=== PATIENT | male | born 1935 | race Caucasian/White ===

== ENCOUNTER 2019-01-19 01:49 | Observation (INO) ==
[2019-01-19] MEDS ORDERED: Aspirin 81 MG TAB.CHEW PO ONE (02:05)
[2019-01-19 02:21] LABS: Basophils % 0.2 %; Eosinophils # 0.3 K/mcL (0.0-0.6); Eosinophils % 4.8 %; Hematocrit 41.8 % (37.5-50.1); Hemoglobin 13.4 g/dL (12.9-16.9); Immature Granulocytes % 0.3 % (0-4); Lymphocytes # 2.5 K/mcL (0.6-4.6); Lymphocytes % 43.8 %; Mean Corpuscular HGB Conc 32.1 g/dL (31.6-35.5); Mean Corpuscular Hemoglobin 29.8 pg (28.0-33.3); Mean Corpuscular Volume 93.1 fL (83.0-100.0); Mean Platelet Volume 9.6 fL (9.4-12.4); Monocytes # 0.8 K/mcL (0.0-1.3); Neutrophils # 2.2 K/mcL (1.6-8.9); Platelet Count 177 K/mcL (140-400); Red Blood Count 4.49 M/mcL (4.19-5.50); Red Cell Distribution Width 13.8 % (11.5-14.5); Segmented Neutrophils % 37.9 %; White Blood Count 5.8 K/mcL (4.3-11.1)
[2019-01-19 02:40] LABS: BUN/Creatinine Ratio 19 (6-26); Blood Urea Nitrogen 23 mg/dL (8-23); Calcium 9.4 mg/dL (8.6-10.3); Carbon Dioxide 26 mEq/L (23-29); Chloride 102 mEq/L (98-107); Glucose 96 mg/dL (70-105); Osmolality,Calculated 302 (280-300); Potassium 3.8 mEq/L (3.5-5.1); Sodium 144 mEq/L (136-145); eGFR For African Americans > 60 (> 60); eGFR For Non-African Americans 57 (> 60)
[2019-01-19 02:41] LABS: Troponin I < 0.03 ng/mL (< 0.04)
--- NOTE | 2019-01-19 02:45 | Emergency Department Note ---
Disposition Clinical Impression: Jaw pain, Epigastric abdominal pain Disposition: Admitted As Inpatient Condition: Fair Time of Disposition: 03:14 General Adult HPI - General Chief complaint: ED Chest Pain Stated complaint: epigastric/jaw pain Time Seen by Provider: 01/19/19 01:53 Source: patient Mode of arrival: ambulatory Limitations: no limitations Nursing Notes Reviewed: Yes Vital Signs Reviewed: Yes - History of Present Illness HPI Narrative: Patient is an 83-year-old male with a past medical history of hypertension presents to the ED for evaluation of right-sided jaw pain as well as epigastric abdominal pain that woke him from sleep prior to arrival. Patient states that p rior to going to sleep he felt normal. His woke up by sharp stabbing pain into his right jaw that he described as mild and resolved within minutes. He also had a mild epigastric distention-like pain. Denies any nausea, vomiting, dyspnea or diaphoresis. States he had a stress test performed years ago which to was told were normal otherwise denies any known CAD. No longer has jaw pain at this time. Pain Scale: 3 - Related Data Home Medications Medication Instructions Recorded Confirmed Ascorbic Acid [Vitamin C] 500 mg PO DAILY 05/29/15 01/19/19 Cholecalciferol (Vitamin D3) 1,000 unit PO DAILY 05/29/15 01/19/19 [Vitamin D] Lansoprazole [Prevacid] 30 mg PO DAILY 05/29/15 01/19/19 Multivitamin [Flintstones] 1 each PO DAILY 05/29/15 01/19/19 Olmesartan/Hydrochlorothiazide 1 each PO DAILY 05/29/15 01/19/19 [Benicar Hct 40-25 mg Tablet] Ranitidine HCl [Zantac] 150 mg PO BID 05/29/15 01/19/19 Vitamin A Palmitate [Vitamin A] 10,000 unit PO DAILY 05/29/15 01/19/19 Allergies Allergy/AdvReac Type Severity Reaction Status Date / Time omeprazole [From Prilosec] Allergy Rash Verified 02/03/17 21:22 levofloxacin [From Levaquin] AdvReac Nausea Verified 02/03/17 21:22 All systems ED: reviewed and negative except as stated. Review of Systems: As Per HPI Constitutional: Denies: fever, chills Cardiovascular: Reports: other (Jaw pain). Denies: chest pain, palpitations, dyspnea on exertion, edema, syncope, paroxysmal nocturnal dyspnea Respiratory: Denies: cough, dyspnea, wheezes Gastrointestinal: Reports: abdominal pain. Denies: nausea, vomiting, diarrhea Musculoskeletal: Denies: back pain, neck pain Integumentary: Denies: rash Past Medical History - Past Medical History Attestation: Yes The following information was validated with the patient. Medical history: Reports: hyperlipidemia, hypertension Surgical history: Reports: appendectomy, orthopedic, other Psychiatric history: Reports: anxiety - Social History Smoking Status: Never smoker Smokeless Tobacco Status: No Alcohol use: Reports: none Drug use: Reports: none Physical Exam CONSTITUTIONAL: Well-appearing; well-nourished; A&O X 3, in no apparent distress HEAD: Normocephalic; atraumatic EYES: PERRL, no scleral icterus NOSE: The nose is normal in appearance without rhinorrhea NECK: No JVD or distended neck veins RESP: Normal chest excursion with respiration; breath sounds clear and equal jair aterally; no wheezes, rhonchi, or rales CARD: Regular rhythm, without murmurs, rub or gallop ABD: Non-distended; non-tender, soft, without rigidity, rebound or guarding,no pulsatile mass CHEST: No pain with palpation SKIN: Normal for age and race; warm and dry without diaphoresis ; no apparent lesions EXTREMITIES: Pulses are 2 plus and equal times 4 extremities, no peripheral edema or calf muscle pain - General Limitations: no limitations General appearance: alert, in no apparent distress Course Course Narrative: Patient undergo evaluation for ACS given his atypical symptoms of jaw pain associated with epigastric pain. He is denying any chest symptoms at this time. He received a full dose of aspirin. Initial EKG appears nonischemic. Patient HEART Score is 4. - Reevaluation(s) Reevaluation #1: Patient's workup was unremarkable. He spirits no further episodes of pain while in the ED. She is admitted to hospitalist for further evaluation for ACS rule out. Vital Signs Temperature 97.8 F 01/19/19 01:53 Pulse Rate 66 01/19/19 01:53 Respiratory Rate 18 01/19/19 01:53 Blood Pressure 182/84 01/19/19 01:53 O2 Sat by Pulse Oximetry 98 01/19/19 01:53 Temperature 98.1 F 01/19/19 05:46 Pulse Rate 66 01/19/19 05:46 Respiratory Rate 16 01/19/19 05:46 Blood Pressure 201/90 01/19/19 05:46 O2 Sat by Pulse Oximetry 97 01/19/19 05:46 Oxygen Delivery Oxygen Delivery Room Air Medical Decision Making - Medical Records Medical records reviewed: Yes I reviewed the patient's medical records. - Lab Data Lab results reviewed: Yes I reviewed the patient's lab results. Result diagrams: 01/19/19 02:00 01/19/19 02:00 Lab Results 01/19/19 01/19/19 Range/Units 02:00 02:00 WBC 5.8 (4.3-11.1) K/mcL RBC 4.49 (4.19-5.50) M/mcL Hgb 13.4 (12.9-16.9) g/dL Hct 41.8 (37.5-50.1) % MCV 93.1 (83.0-100.0) fL MCH 29.8 (28.0-33.3) pg MCHC 32.1 (31.6-35.5) g/dL RDW 13.8 (11.5-14.5) % Plt Count 177 (140-400) K/mcL MPV 9.6 (9.4-12.4) fL Immature Gran % 0.3 (0-4) % Seg Neutrophils % 37.9 % Lymphocytes % 43.8 % Monocytes % 13.0 % Eosinophils % 4.8 % Basophils % 0.2 % Neutrophils # 2.2 (1.6-8.9) K/mcL Lymphocytes # 2.5 (0.6-4.6) K/mcL Monocytes # 0.8 (0.0-1.3) K/mcL Eosinophils # 0.3 (0.0-0.6) K/mcL Basophils # 0.0 (0.0-0.2) K/mcL Sodium 144 (136-145) mEq/L Potassium 3.8 (3.5-5.1) mEq/L Chloride 102 (98-107) mEq/L Carbon Dioxide 26 (23-29) mEq/L BUN 23 (8-23) mg/dL Creatinine 1.21 (0.70-1.30) mg/dL Est GFR ( Amer) > 60 (> 60) Est GFR (Non-Af Amer) 57 L (> 60) BUN/Creatinine Ratio 19 (6-26) Glucose 96 (70-105) mg/dL Calculated Osmolality 302 H (280-300) Calcium 9.4 (8.6-10.3) mg/dL Total Bilirubin 0.5 (0.3-1.0) mg/dL Direct Bilirubin 0.1 (0.0-0.2) mg/dL Indirect Bilirubin 0.4 (0.0-1.2) mg/dL AST 20 (13-39) Units/L ALT 15 (7-52) Units/L Alkaline Phosphatase 65 (34-104) Units/L Troponin I < 0.03 (< 0.04) ng/mL Serum Total Protein 7.3 (6.4-8.9) g/dL Albumin 4.1 (3.5-5.7) g/dL Globulin 3.2 (2.4-3.5) g/dL Albumin/Globulin Ratio 1.3 (1.1-2.2) Lipase 30 (11-82) Units/L - Radiology Data Radiology results reviewed: Yes I reviewed the patient's radiology results. Chest X-Ray 01/19/19 02:05 IMPRESSION: No acute disease. D/ / Hugo Martinez MD / Hugo Martinez MD Interpreting Provider: Hugo Martinez MD - EKG Data EKG #1 EKG attestation: Yes I reviewed and interpreted this EKG. EKG results narrative: EKG done at 1:53 shows sinus rhythm at rate of 64 bpm. Normal axis. QRS is widened at 140. First-degree AV block. Right bundle branch block. These fin dings are unchanged from EKG performed in March 2017.
[2019-01-19 02:51] LABS: Alanine Aminotransferase 15 Units/L (7-52); Albumin 4.1 g/dL (3.5-5.7); Albumin/Globulin Ratio 1.3 (1.1-2.2); Alkaline Phosphatase 65 Units/L (34-104); Aspartate Amino Transferase 20 Units/L (13-39); Bilirubin,Direct 0.1 mg/dL (0.0-0.2); Bilirubin,Indirect 0.4 mg/dL (0.0-1.2); Bilirubin,Total 0.5 mg/dL (0.3-1.0); Globulin 3.2 g/dL (2.4-3.5); Lipase 30 Units/L (11-82); Total Protein 7.3 g/dL (6.4-8.9)
--- NOTE | 2019-01-19 04:43 | Emergency Department Note ---
Disposition Clinical Impression: Jaw pain, Epigastric abdominal pain Disposition: Admitted As Inpatient Condition: Fair Time of Disposition: 03:14 General Adult HPI - General Chief complaint: ED Chest Pain Stated complaint: epigastric/jaw pain Time Seen by Provider: 01/19/19 01:53 Source: patient Mode of arrival: ambulatory Limitations: no limitations Nursing Notes Reviewed: Yes Vital Signs Reviewed: Yes - History of Present Illness Pain Scale: 3 - Related Data Home Medications Medication Instructions Recorded Confirmed Ascorbic Acid [Vitamin C] 500 mg PO DAILY 05/29/15 05/29/15 Cholecalciferol (Vitamin D3) 1,000 unit PO DAILY 05/29/15 05/29/15 [Vitamin D] Lansoprazole [Prevacid] 30 mg PO DAILY 05/29/15 05/29/15 Multivitamin [Flintstones] 1 each PO DAILY 05/29/15 05/29/15 Olmesartan/Hydrochlorothiazide 1 each PO DAILY 05/29/15 05/29/15 [Benicar Hct 40-25 mg Tablet] Ranitidine HCl [Zantac] 150 mg PO BID 05/29/15 05/29/15 Vitamin A Palmitate [Vitamin A] 10,000 unit PO DAILY 05/29/15 05/29/15 Allergies Allergy/AdvReac Type Severity Reaction Status Date / Time omeprazole [From Prilosec] Allergy Rash Verified 02/03/17 21:22 levofloxacin [From Levaquin] AdvReac Nausea Verified 02/03/17 21:22 Constitutional: Denies: fever, chills Cardiovascular: Reports: other (Jaw pain). Denies: chest pain, palpitations, dyspnea on exertion, edema, syncope, paroxysmal nocturnal dyspnea Respiratory: Denies: cough, dyspnea, wheezes Gastrointestinal: Reports: abdominal pain. Denies: nausea, vomiting, diarrhea Musculoskeletal: Denies: back pain, neck pain Integumentary: Denies: rash Past Medical History - Past Medical History Medical history: Reports: hyperlipidemia, hypertension Surgical history: Reports: appendectomy, orthopedic, other Psychiatric history: Reports: anxiety - Social History Smoking Status: Never smoker Smokeless Tobacco Status: No Alcohol use: Reports: none Drug use: Reports: none Physical Exam - General Limitations: no limitations General appearance: alert, in no apparent distress Course Vital Signs Temperature 97.8 F 01/19/19 01:53 Pulse Rate 66 01/19/19 01:53 Respiratory Rate 18 01/19/19 01:53 Blood Pressure 182/84 01/19/19 01:53 O2 Sat by Pulse Oximetry 98 01/19/19 01:53 Temperature 97.8 F 01/19/19 01:53 Pulse Rate 52 01/19/19 04:58 Respiratory Rate 16 01/19/19 04:58 Blood Pressure 151/53 01/19/19 04:58 O2 Sat by Pulse Oximetry 99 01/19/19 04:58 Oxygen Delivery Oxygen Delivery Room Air Medical Decision Making - Medical Records Medical records reviewed: Yes I reviewed the patient's medical records. - Lab Data Lab results reviewed: Yes I reviewed the patient's lab results. Result diagrams: 01/19/19 02:00 01/19/19 02:00 Lab Results 01/19/19 01/19/19 Range/Units 02:00 02:00 WBC 5.8 (4.3-11.1) K/mcL RBC 4.49 (4.19-5.50) M/mcL Hgb 13.4 (12.9-16.9) g/dL Hct 41.8 (37.5-50.1) % MCV 93.1 (83.0-100.0) fL MCH 29.8 (28.0-33.3) pg MCHC 32.1 (31.6-35.5) g/dL RDW 13.8 (11.5-14.5) % Plt Count 177 (140-400) K/mcL MPV 9.6 (9.4-12.4) fL Immature Gran % 0.3 (0-4) % Seg Neutrophils % 37.9 % Lymphocytes % 43.8 % Monocytes % 13.0 % Eosinophils % 4.8 % Basophils % 0.2 % Neutrophils # 2.2 (1.6-8.9) K/mcL Lymphocytes # 2.5 (0.6-4.6) K/mcL Monocytes # 0.8 (0.0-1.3) K/mcL Eosinophils # 0.3 (0.0-0.6) K/mcL Basophils # 0.0 (0.0-0.2) K/mcL Sodium 144 (136-145) mEq/L Potassium 3.8 (3.5-5.1) mEq/L Chloride 102 (98-107) mEq/L Carbon Dioxide 26 (23-29) mEq/L BUN 23 (8-23) mg/dL Creatinine 1.21 (0.70-1.30) mg/dL Est GFR ( Amer) > 60 (> 60) Est GFR (Non-Af Amer) 57 L (> 60) BUN/Creatinine Ratio 19 (6-26) Glucose 96 (70-105) mg/dL Calculated Osmolality 302 H (280-300) Calcium 9.4 (8.6-10.3) mg/dL Total Bilirubin 0.5 (0.3-1.0) mg/dL Direct Bilirubin 0.1 (0.0-0.2) mg/dL Indirect Bilirubin 0.4 (0.0-1.2) mg/dL AST 20 (13-39) Units/L ALT 15 (7-52) Units/L Alkaline Phosphatase 65 (34-104) Units/L Troponin I < 0.03 (< 0.04) ng/mL Serum Total Protein 7.3 (6.4-8.9) g/dL Albumin 4.1 (3.5-5.7) g/dL Globulin 3.2 (2.4-3.5) g/dL Albumin/Globulin Ratio 1.3 (1.1-2.2) Lipase 30 (11-82) Units/L - Radiology Data Radiology results reviewed: Yes I reviewed the patient's radiology results. Chest X-Ray 01/19/19 02:05 IMPRESSION: No acute disease. D/ / Hugo Martinez MD / Hugo Martinez MD Interpreting Provider: Hugo Martinez MD - EKG Data EKG #1 EKG attestation: Yes I reviewed and interpreted this EKG. EKG results narrative: EKG shows a normal sinus rhythm with ventricular rate of 64. Right bundle branc h block. Unchanged from prior EKG dated 03/10/2017. Attestation Statement - Attestation Attestation: I, Omid Gibbs MD, personally evaluated this patient and discussed their management with the resident physician. I reviewed the resident's note and agree with the documented findings, medical decision making, and plan of care. I reviewed the residents documentation and agree with the residents assessment and plan of care. I have personally had face to face time with the patient. I personally supervised and was present for the mace/critical portions of the following procedures completed by the resident: EKG interpretation. 83-year-old male presents to the emergency department with a complaint that he awoke from sleep with right jaw pain and epigastric discomfort. This lasted about 10 minutes and then resolved. He denies any shortness of breath or diapho resis with the episode. No nausea or vomiting. No palpitations. No prior history of cardiac problems. He has had negative stress test in the past but is been several years. On examination patient is a well-developed well-nourished well-appearing elderly male in no acute distress. He is alert and oriented 3. There is no cyanosis or diaphoresis. Chest is nontender to palpation. Breath sounds are clear and equal bilaterally. Heart regular rate and rhythm. Abdomen soft and nontender with normal bowel sounds. EKG shows a normal sinus rhythm with ventricular rate of 64. Right bundle br anch block. Unchanged from prior EKG dated 03/10/2017. Chest x-ray negative. Labs reviewed and unremarkable. Troponin negative. The hospitalist, Dr. Florian, was consulted and accepted admission of the patient.
--- NOTE | 2019-01-19 05:46 | Internal Med History&Physical ---
Date of Encounter: 01/19/19 Time of Encounter: 05:45 Internal Medicine - H&P: HPI Chief complaint: pain Admitted From: Home Plans for Post Hospital Care: Home History of present illness: Amol Hunter is an 83 year old man who came to the ER complaining of acute onset epigastric pain and discomfort accompanied by pain in his jaw which he localizes to the right side rather than the left. He also reports the abdominal discomfort being dyspeptic in nature. He denied chest pain, shortness of breath, diaphoresis, headache and dizziness. He was evaluated in the ER and given his age, there was concern that it could be atypical angina equivalent symptoms and therefore require observation. He was given loading dose of aspirin. EKG showed sinus bradycardia which is normal for him reports the patient. At the time of my assessment he reports feeling well and having no persistent symptoms saying they resolved spontaneously. Vitals: Reviewed General: Well-developed elderly man lying comfortably in bed in no acute distress. Skin: Warm and supple. HEENT: Moist mucous membranes. No conjunctivae pallor. Neck: No lymphadenopathy. No JVD. No carotid bruits. No palpable thyroid. Chest: Normal thoracic expansion. Normal breath sounds. Clear to auscultation. Heart: Normal S1 & S2; rhythmic. No rubs or murmurs. Abdomen: Non-distended, soft and non-tender to palpation. No peritoneal reaction. Extremities: No clubbing, cyanosis or edema. No calf tenderness. Normal distal pulses. Neurological: Awake, alert and oriented to person, place and time. No focal deficits. Psych: Affect appropriate. Assessment/Plan 1. Epigastralgia: Suspect more dyspepsia given his prior history of this rather than an atypical angina equivalent. It is concerning that it was accompanied by jaw pain however even though it was on the right side. The symptoms seem to have resolved spontaneously without intervention. He has no previous cardiac history and appears otherwise healthy. He may benefit from a short period of observation and maintain on telemetry in the interim with a second troponin scheduled to be done in a few hours. Based on its negativity and ongoing clinical stability, he may be discharged with outpatient follow up. 2. Hypertension: Well controlled and will resume his home medications. 3. Dyspepsia: On PPI/H2 nu. 4. DVT prophylaxis: Antiembolic stockings. Past Med Surg Social Fam HX - Past Medical History Medical history: hyperlipidemia, hypertension Psychiatric history: anxiety - Past Surgical History Surgical History: appendectomy, orthopedic, other - Social History Smoking Status: Never smoker Smokeless Tobacco Status: No Alcohol use: none Drug use: none Internal Medicine - H&P: Meds Ascorbic Acid [Vitamin C] 500 mg PO DAILY 05/29/15 [History] Cholecalciferol (Vitamin D3) [Vitamin D] 1,000 unit PO DAILY 05/29/15 [History] Lansoprazole [Prevacid] 30 mg PO DAILY 05/29/15 [History] Multivitamin [Flintstones] 1 each PO DAILY 05/29/15 [History] Olmesartan/Hydrochlorothiazide [Benicar Hct 40-25 mg Tablet] 1 each PO DAILY 05/29/15 [History] Ranitidine HCl [Zantac] 150 mg PO BID 05/29/15 [History] Vitamin A Palmitate [Vitamin A] 10,000 unit PO DAILY 05/29/15 [History] Allergy/AdvReac Type Severity Reaction Status Date / Time omeprazole [From Prilosec] Allergy Rash Verified 02/03/17 21:22 levofloxacin [From Levaquin] AdvReac Nausea Verified 02/03/17 21:22 All Systems PM: A 10-system review of systems was performed and is negative for pertinent findings except as documented above in the HPI. Family history reviewed and found non-contributory. - Constitutional Vitals: Temp Pulse Resp BP Pulse Ox 97.8 F 52 16 151/53 99 01/19/19 01:53 01/19/19 04:58 01/19/19 04:58 01/19/19 04:58 01/19/19 04:58 Exam: . Internal Med - H&P Results - Labs CBC & Chem 7: 01/19/19 02:00 01/19/19 02:00 Labs: Short CBC 01/19/19 Range/Units 02:00 WBC 5.8 (4.3-11.1) K/mcL Hgb 13.4 (12.9-16.9) g/dL Hct 41.8 (37.5-50.1) % Plt Count 177 (140-400) K/mcL Neutrophils # 2.2 (1.6-8.9) K/mcL BMP 01/19/19 02:00 Sodium 144 Potassium 3.8 Chloride 102 Carbon Dioxide 26 BUN 23 Creatinine 1.21 Glucose 96 Calcium 9.4 Cardiac Enzymes 01/19/19 Range/Units 02:00 Troponin I < 0.03 (< 0.04) ng/mL Liver Function 01/19/19 Range/Units 02:00 Total Bilirubin 0.5 (0.3-1.0) mg/dL Direct Bilirubin 0.1 (0.0-0.2) mg/dL AST 20 (13-39) Units/L ALT 15 (7-52) Units/L Alkaline Phosphatase 65 (34-104) Units/L Albumin 4.1 (3.5-5.7) g/dL - Impressions ITS Impressions Chest X-Ray 01/19/19 02:05 IMPRESSION: No acute disease. D/ / Hugo Martinez MD / Hugo Martinez MD Interpreting Provider: Hugo Martinez MD - Time Spent With Patient Total time spent is greater than 50% in coordination of care (as documented) at patient's floor/unit and/or counseling patient: Greater than 35 minutes
[2019-01-19] MEDS: Multivit/Ca/Min/Fe/FA 1 TAB TABLET PO SCH (08:00)
[2019-01-19] MEDS: Cholecalciferol (D-3) 1,000 UNIT (25MCG) TABLET PO SCH (08:00)
[2019-01-19] MEDS: Ascorbic Acid 500 MG TABLET PO SCH (08:00)
[2019-01-19] MEDS: hydroCHLOROthiazide 25 MG TABLET PO SCH (08:00)
[2019-01-19] MEDS: (Vitamin A Palmitate [Vitamin A] 10,000 UNIT) PO SCH (08:01)
[2019-01-19] MEDS ORDERED: Famotidine 20 MG TABLET PO SCH (09:00)
--- NOTE | 2019-01-19 11:47 | Event Note ---
Date of Encounter: 01/19/19 Time of Encounter: 11:47 Patient was seen and examined by hospitalist services earlier this am. Denies any pain or discomfort at this time. Discussed treatment plan, patient will undergo cardiac stress test in am verbalizes understanding
[2019-01-19] MEDS: Famotidine 20 MG TABLET PO SCH (20:58)
--- NOTE | 2019-01-20 00:28 | Electrocardiograph Report ---
[facility] Test Date: 2019-01-19 Pat Name: Amol Hunter Department: [id number] Room: 3B12 Gender: M [employer]: : [id number] Requested By: Rodolfo Ashraf Order Number: [id number] Reading MD: Jenae Macias Measurements Intervals [place] Rate: 64 P: 59 HI: 219 QRS: -9 QRSD: 140 T: 55 QT: 450 QTc: 465 Interpretive Statements Sinus rhythm Borderline prolonged HI interval Right bundle branch block Electronically Signed On 01-20-2019 0:25:57 EDT by Jenae Macias
[2019-01-20] MEDS ORDERED: Regadenoson 0.4 MG/5 ML SYRINGE IVP ONE (06:35)
[2019-01-20] MEDS: (Vitamin A Palmitate [Vitamin A] 10,000 UNIT) PO SCH (10:06)
[2019-01-20] MEDS: hydroCHLOROthiazide 25 MG TABLET PO SCH (10:13)
[2019-01-20] MEDS: Multivit/Ca/Min/Fe/FA 1 TAB TABLET PO SCH (10:13)
[2019-01-20] MEDS: Ascorbic Acid 500 MG TABLET PO SCH (10:13)
[2019-01-20] MEDS: Cholecalciferol (D-3) 1,000 UNIT (25MCG) TABLET PO SCH (10:13)
[2019-01-20] MEDS: Famotidine 20 MG TABLET PO SCH (10:13)
[2019-01-20 11:34] VITALS: BP 128/64
--- NOTE | 2019-01-20 12:41 | Discharge Summary ---
- NOTES TO OUTPATIENT PROVIDER Notes to Outpatient Provider: Presented with Jaw pain and epigastric pain- underwent cardiac stress test which was negative - recommend possible EGD as outpatient Orders not resulted at time of discharge: Pending orders 01/20/19 07:00 NM inez perf SPECT multi [NM] Routine Date of Encounter: 01/20/19 Time of Encounter: 12:41 - Discharge Diagnosis (1) Epigastric abdominal pain Priority: Primary Status: Acute (2) Jaw pain Priority: Secondary Status: Acute Hospital course: Mr. Hunter is a 83 year old male past medical history of hyperlipidemia and hypertension presented to [facility] ED with complaints of epigastric pain as well as right jaw pain which woke him from sleep he denied any associated symptoms of shortness of breath diaphoresis nausea or vomiting. Epigastric pain as well as the jaw pain resolved on its own Shaw presented with the above complaints concerns for atypical angina-EKG with no ischemic changes-sinus bradycardia which patient has a past history-chest x-ray with nothing acute cardiac echo with EF of 60-65% mild left ventricular diastolic runs in normal right ventricular structure and function mild dilated left atrium mild mitral regurg mild tricuspid regurgitation only hypertension. Patient did undergo cardiac st ress test which was negative for any ischemia or infarct. Patient has not had any chest pain or other cardiac symptoms since he has been admitted review of telemetry shows no ectopy or arrhythmias. Currently he is hemodynamically stable at this time is ready for discharge. - Time Spent with Patient Total time spent providing and/or coordinating discharge services: - Discharge Medications Prescriptions: Continued Ascorbic Acid [Vitamin C] 500 mg PO DAILY Vitamin A Palmitate [Vitamin A] 10,000 unit PO DAILY Ranitidine HCl [Zantac] 150 mg PO BID Olmesartan/Hydrochlorothiazide [Benicar Hct 40-25 mg Tablet] 1 each PO DAILY Multivitamin [Flintstones] 1 each PO DAILY Lansoprazole [Prevacid] 30 mg PO DAILY Cholecalciferol (Vitamin D3) [Vitamin D] 1,000 unit PO DAILY Home Medications: Ascorbic Acid [Vitamin C] 500 mg PO DAILY 05/29/15 [History] Cholecalciferol (Vitamin D3) [Vitamin D] 1,000 unit PO DAILY 05/29/15 [History] Lansoprazole [Prevacid] 30 mg PO DAILY 05/29/15 [History] Multivitamin [Flintstones] 1 each PO DAILY 05/29/15 [History] Olmesartan/Hydrochlorothiazide [Benicar Hct 40-25 mg Tablet] 1 each PO DAILY 05/29/15 [History] Ranitidine HCl [Zantac] 150 mg PO BID 05/29/15 [History] Vitamin A Palmitate [Vitamin A] 10,000 unit PO DAILY 05/29/15 [History] Allergies/Adverse Reactions: Allergy/AdvReac Type Severity Reaction Status Date / Time omeprazole [From Prilosec] Allergy Rash Verified 02/03/17 21:22 levofloxacin [From Levaquin] AdvReac Nausea Verified 02/03/17 21:22 Date of admission: 01/19/19 04:16 Primary care physician: PCP NONE Discharging clinician: Sonya Escobar Anticipated date of discharge: 01/20/19 - Constitutional Vitals: Temp Pulse Resp BP Pulse Ox 97.8 F 51 16 128/64 94 01/20/19 11:32 01/20/19 11:32 01/20/19 11:32 01/20/19 11:32 01/20/19 11:32 Exam: Skin: Free of rash and discoloration. Eyes: Sclera is white. There is no discharge from eyes. ENMT: Oral/pharyngeal mucosa is normal in appearance. There is no discharge from nose or ears. Respiratory: Normal breath sounds with no crackles and wheezes bilaterally. CV: Heart is regular with no gallop or murmur. GI: Abdomen is flat and soft with no palpable mass or visceromegaly. : There is no tenderness in patient's flanks bilaterally. Neuro exam: He has good strength in upper and lower extremities. He has normal eye movements. Psychiatric: He has normal affect. His thought process is appropriate to the situation. - Patient Status Disposition: Home, Self-Care Condition: Good Functional capacity at discharge: independent ambulation Overall status at discharge: patient is back to baseline - Discharge Instructions Follow Up With: Bhupinder Tobar MD [Partnered Physician] - Additional Instructions: Monitor blood pressure and keep a log - Diet and Activity Activity: increase activity as tolerated Diet: low fat, low cholesterol, low salt diet
== END 2019-01-20 14:05 | disposition home or self-care (01) ==
LOC: EMEROOARM 01:49 → 3BNU 01:49
PROVIDERS: ADMIT Internal Medicine; ATTEND Internal Medicine

== ENCOUNTER 2020-01-17 17:14 | Observation (INO) ==
[2020-01-17 17:41] LABS: Basophils % 0.3 %; Eosinophils # 0.2 K/mcL (0.0-0.6); Eosinophils % 2.7 %; Hematocrit 45.3 % (37.5-50.1); Hemoglobin 14.5 g/dL (12.9-16.9); Immature Granulocytes % 0.3 % (0-4); Lymphocytes % 32.4 %; Mean Corpuscular Hemoglobin 29.8 pg (28.0-33.3); Mean Corpuscular Volume 93.2 fL (83.0-100.0); Mean Platelet Volume 9.8 fL (9.4-12.4); Monocytes # 0.8 K/mcL (0.0-1.3); Neutrophils # 3.2 K/mcL (1.6-8.9); Platelet Count 198 K/mcL (140-400); Red Blood Count 4.86 M/mcL (4.19-5.50); Red Cell Distribution Width 13.5 % (11.5-14.5); Segmented Neutrophils % 51.3 %; White Blood Count 6.2 K/mcL (4.3-11.1)
[2020-01-17 17:55] LABS: INR 1.1; Prothrombin Time 12.4 Seconds (9.4-12.1)
[2020-01-17 18:05] LABS: BUN/Creatinine Ratio 24 (6-26); Blood Urea Nitrogen 28 mg/dL (8-23); Calcium 9.3 mg/dL (8.6-10.3); Carbon Dioxide 24 mEq/L (23-29); Chloride 106 mEq/L (98-107); Glucose 120 mg/dL (70-105); Lipase 25 Units/L (11-82); Osmolality,Calculated 293 (280-300); Potassium 3.6 mEq/L (3.5-5.1); Sodium 138 mEq/L (136-145); Troponin I < 0.03 ng/mL (< 0.04); eGFR For African Americans > 60 (> 60); eGFR For Non-African Americans 59 (> 60)
[2020-01-17 22:55] LABS: Bilirubin,Urine Negative (Negative); Blood,Urine Negative (Negative); Clarity,Urine Clear (Clear); Color,Urine Colorless (Yellow); Glucose,Urine (UA) Normal (Normal); Ketones,Urine Negative (Negative); Leukocyte Esterase,Urine Negative (Negative); Nitrite,Urine Negative (Negative); PH,Urine 6.5 pH Units (5.0-8.0); Protein,Urine Negative (Neg-Trace); Specific Gravity,Urine 1.009 (1.010-1.025); Urobilinogen,Urine Normal (Normal)
[2020-01-18] MEDS: *HR* Heparin 5,000 UNIT/ML VIAL SQ SCH ×3 (05:38→21:01)
[2020-01-18 07:31] LABS: Basophils % 0.3 %; Eosinophils # 0.2 K/mcL (0.0-0.6); Hematocrit 46.2 % (37.5-50.1); Hemoglobin 15.1 g/dL (12.9-16.9); Immature Granulocytes % 0.3 % (0-4); Lymphocytes # 1.7 K/mcL (0.6-4.6); Lymphocytes % 28.8 %; Mean Corpuscular HGB Conc 32.7 g/dL (31.6-35.5); Mean Corpuscular Hemoglobin 30.3 pg (28.0-33.3); Mean Corpuscular Volume 92.8 fL (83.0-100.0); Monocytes # 0.7 K/mcL (0.0-1.3); Monocytes % 11.7 %; Neutrophils # 3.2 K/mcL (1.6-8.9); Platelet Count 180 K/mcL (140-400); Red Blood Count 4.98 M/mcL (4.19-5.50); Red Cell Distribution Width 13.4 % (11.5-14.5); Segmented Neutrophils % 55.9 %; White Blood Count 5.7 K/mcL (4.3-11.1)
[2020-01-18 07:59] LABS: BUN/Creatinine Ratio 21 (6-26); Blood Urea Nitrogen 23 mg/dL (8-23); Carbon Dioxide 24 mEq/L (23-29); Chloride 106 mEq/L (98-107); Glucose 88 mg/dL (70-105); Osmolality,Calculated 293 (280-300); Potassium 3.3 mEq/L (3.5-5.1); Sodium 140 mEq/L (136-145); eGFR For African Americans > 60 (> 60); eGFR For Non-African Americans > 60 (> 60)
[2020-01-18 08:02] LABS: Thyroid Stimulating Hormone 6.725 mcIU/mL (0.340-5.600)
[2020-01-18] MEDS: Losartan/HCTZ 50-12.5 TABLET PO SCH (10:49)
[2020-01-18 14:05] LABS: Magnesium 1.7 mg/dL (1.6-2.6)
[2020-01-18 14:06] LABS: Troponin I < 0.03 ng/mL (< 0.04)
[2020-01-18 14:20] LABS: Thyroid Stimulating Hormone 4.196 mcIU/mL (0.340-5.600)
[2020-01-18] MEDS ORDERED: *HR* LORazepam 1 MG TABLET PO PRN (16:19)
[2020-01-19 03:25] LABS: Hematocrit 44.3 % (37.5-50.1); Hemoglobin 14.8 g/dL (12.9-16.9); Mean Corpuscular HGB Conc 33.4 g/dL (31.6-35.5); Mean Corpuscular Hemoglobin 31.1 pg (28.0-33.3); Mean Corpuscular Volume 93.1 fL (83.0-100.0); Mean Platelet Volume 9.8 fL (9.4-12.4); Platelet Count 178 K/mcL (140-400); Red Blood Count 4.76 M/mcL (4.19-5.50); Red Cell Distribution Width 13.5 % (11.5-14.5); White Blood Count 6.9 K/mcL (4.3-11.1)
[2020-01-19 03:40] LABS: BUN/Creatinine Ratio 22 (6-26); Blood Urea Nitrogen 23 mg/dL (8-23); Carbon Dioxide 22 mEq/L (23-29); Chloride 107 mEq/L (98-107); Glucose 90 mg/dL (70-105); Osmolality,Calculated 289 (280-300); Sodium 138 mEq/L (136-145); eGFR For African Americans > 60 (> 60); eGFR For Non-African Americans > 60 (> 60)
[2020-01-19] MEDS: *HR* Heparin 5,000 UNIT/ML VIAL SQ SCH (05:56)
[2020-01-19 07:41] VITALS: BP 168/84
[2020-01-19] MEDS: Losartan/HCTZ 50-12.5 TABLET PO SCH (09:06)
== END 2020-01-19 11:05 | disposition home or self-care (01) ==
LOC: 3BNU 17:14 → EMEROOARM 17:14 → 3BNU 20:03
PROVIDERS: ADMIT Internal Medicine; ATTEND Internal Medicine